=== PATIENT | female | born 1985 | race Caucasian/White ===

== ENCOUNTER 2020-07-26 19:30 | Emergency (ER) | payer OTHER ==
[~2020-07-26] VITALS: Ht 175.3 cm; Wt 77.1 kg
[2020-07-26] MEDS ORDERED: KEPPRA XR500 MG PO (19:41)
[2020-07-26] MEDS ORDERED: KEPPRA 500 MG500 MG PO (19:59)
[2020-07-26 20:06] VITALS: BP 115/56
== END 2020-07-26 20:07 | disposition home or self-care (01) ==
LOC: M.ERS 19:30
DX: R56.9 Unspecified convulsions (principal); Z76.0 Encounter for issue of repeat prescription; Z90.89 Acquired absence of other organs